=== PATIENT | male | born 1985 | race Caucasian/White ===

== ENCOUNTER 2022-07-12 05:52 | Emergency (ER) | payer BC, SELFPAY ==
[2022-07-12] VITALS (11 sets, daily range): BP systolic 163–194; BP diastolic 86–104; PULSE 76–91; RESP 16–22; TEMP 37.2; O2SAT 94–100
[2022-07-12 07:02] LABS: Alanine Aminotransferase 39 U/L (6-50); Albumin Level 4.1 g/dL (3.5-5.1); Alkaline Phosphatase 53 U/L (38-126); Anion Gap 11 mmol/L (8-16); Aspartate Amino Transferase 31 U/L (17-59); Bilirubin,Total 0.7 mg/dL (0.2-1.3); Blood Urea Nitrogen 15 mg/dL (9-20); Carbon Dioxide 23 mmol/L (22-30); Chloride 103 mmol/L (98-107); Estimated CRCL calculation 194 ml/min; Estimated Glomerular Filt Rate > 60; Glucose 111 mg/dL (65-110); Lipase 39 U/L (23-300); Potassium 3.7 mmol/L (3.4-5.0); Sodium 137 mmol/L (137-145)
--- NOTE | 2022-07-12 07:37 | ED.GENADULT ---
HPI - General Adult General Chief complaint: Nausea/Vomiting/Diarrhea Stated complaint: N/V, abd pain, fever Time Seen by Provider: 07/12/22 07:00 History of Present Illness HPI narrative: 37-year-old male presenting to the emergency department for evaluation of multiple complaints. Patient states over the last few days he has developed full body pain. Patient states he typically has pain in his knees but has also developed pain in his arms and abdomen. Patient states he does have increased fatigue. Patient denies any associated chest pain or shortness of breath with this. Patient states he has had some nausea. Patient reports he has had associated fever. Patient does not test himself for COVID. Patient reports he does have a prior history of GA. Patient states he did have his gallbladder out approximately 10 years ago Related Data Allergies Allergy/AdvReac Type Severity Reaction Status Date / Time No Known Allergies Allergy Verified 07/12/22 06:07 Review of Systems Review of Systems: All systems reviewed & are unremarkable except as noted in HPI and below Exam Narrative: APPEARANCE: Sitting at side of bed alert and appropriate, no distress HEAD: normocephalic, atraumatic. EYES: PERRLA/EOMI, conjunctivae clear. NOSE: Normal no drainage NECK: Supple. No adenopathy, no masses. RESPIRATORY: Airway patent, respirations nonlabored. Clear to auscultation bilaterally, no rales, rhonchi, wheezing. CARDIOVASCULAR: Regular rate and rhythm without murmurs rubs or gallops. ABDOMINAL: Soft, nontender, nondistended, normal bowel sounds MUSCULOSKELETAL: Moves all extremities. Strength/ROM intact, No edema, No calf tenderness. NEURO: Alert. Cranial nerves II through XII intact. Good gait. Good coordination SKIN: Warm, dry. Normal Color PSYCHIATRIC: Normal affect/mood. Course Course Emergency Course: 37-year-old male presented ED for evaluation of fever and generalized weakness and generalized pain. Patient was afebrile in the ED with no leukocytosis. Patient's CMP is within normal limits. No evidence of urinary tract infection. Patient's influenza COVID RSV and strep are negative. Patient does feel improved with rehydration. Patient was encouraged to have close follow-up with his primary care physician and to take Tylenol and ibuprofen for pain control. And for fever control. Suspect a viral etiology for the patient's symptoms. Patient was comfortable with the plan for discharge and close follow-up. Vital Signs Vital signs: Vital Signs Temperature 98.9 F 07/12/22 05:58 Pulse Rate 87 07/12/22 05:58 Respiratory Rate 22 H 07/12/22 05:58 Blood Pressure 164/96 H 07/12/22 05:58 Pulse Oximetry 96 07/12/22 05:58 Oxygen Delivery Room Air 07/12/22 05:58 Temperature 98.9 F 07/12/22 05:58 Pulse Rate 76 07/12/22 11:19 Respiratory Rate 18 07/12/22 11:19 Blood Pressure 188/91 H 07/12/22 11:19 Pulse Oximetry 100 07/12/22 11:19 Oxygen Delivery Room Air 07/12/22 06:00 Medical Decision Making Vital Signs Vital Signs: Vital Signs Temperature 98.9 F 07/12/22 05:58 Pulse Rate 87 07/12/22 05:58 Respiratory Rate 22 H 07/12/22 05:58 Blood Pressure 164/96 H 07/12/22 05:58 Pulse Oximetry 96 07/12/22 05:58 Oxygen Delivery Room Air 07/12/22 05:58 Temperature 98.9 F 07/12/22 05:58 Pulse Rate 76 07/12/22 11:19 Respiratory Rate 18 07/12/22 11:19 Blood Pressure 188/91 H 07/12/22 11:19 Pulse Oximetry 100 07/12/22 11:19 Oxygen Delivery Room Air 07/12/22 06:00 Lab Data Lab results reviewed: Yes I reviewed the patient's lab results. 07/12/22 07:42 07/12/22 06:45 Labs: Lab Results 07/12/22 07/12/22 07/12/22 Range/Units 06:45 07:42 07:43 WBC 6.5 (4.5-10.0) K/mm3 RBC 4.22 L (4.6-6.20) M/mm3 Hgb 11.5 L (14.0-18.0) g/dL Hct 36.3 L (42.0-52.0) % MCV 86.0 (80-100) fl MCH 27.3 (26-34) pg MCHC
[2022-07-12] MEDS: SODIUM CHLORIDE 0.9% IV 1,000 ML 500 ML IV CONT (07:50)
[2022-07-12] MEDS: ONDANSETRON INJ 4 MG/2 ML VIAL IV PUSH (07:50)
[2022-07-12 07:51] LABS: Appearance Urine Clear (Clear); Bilirubin Urine Negative (Negative); Blood Urine Negative (Negative); Color Urine Yellow (Yellow); Glucose Urine UA Negative (Negative); Ketones Urine Negative (Negative); Leukocyte Esterase Ur Negative LEU/UL (Negative); Nitrate Urine Negative (Negative); Protein Urine Negative (Negative); Specific Grav Ur 1.015 (1.001-1.035); Urobilinogen Urine 0.2 mg/dL (<2.0); pH Urine 5.5 (5.0-9.0)
[2022-07-12 07:52] LABS: Add Urine Microscopic? NO
[2022-07-12 08:01] LABS: Basophils Percent Auto 0.3 % (0.2-1.2); Eosinophils Absolute Auto 0.1 K/mm3 (0-0.3); Eosinophils Percent Auto 1.8 % (0-4.4); Hematocrit 36.3 % (42.0-52.0); Hemoglobin 11.5 g/dL (14.0-18.0); Immature Granulocyte Absolute 0.03 K/mm3 (0.00-0.031); Immature Granulocyte Percent A 0.5 % (0-0.5); Lymphocytes Absolute Auto 0.41 K/mm3 (0.9-3.2); Lymphocytes Percent Auto 6.3 % (18.3-44.2); Mean Corpuscular HGB Conc 31.7 g/dl (32-36); Mean Corpuscular Hemoglobin 27.3 pg (26-34); Mean Platelet Volume 10.2 fl (7.4-10.4); Monocytes Absolute Auto 0.4 K/mm3 (0.1-0.6); Monocytes Percent Auto 5.9 % (2.6-8.5); Neutrophils Absolute Auto 5.5 K/mm3 (1.3-6.7); Neutrophils Percent Auto 85.2 % (45.5-73.1); Platelet Count Result 206 k/mm3 (150-375); Red Blood Count 4.22 M/mm3 (4.6-6.20); Red Cell Distribution Width 14.7 % (11.5-14.5); White Blood Count 6.5 K/mm3 (4.5-10.0)
[2022-07-12 08:14] LABS: Strep Group A RT-PCR NOT DETECTED (Negative)
[2022-07-12 08:26] LABS: Influenza A QL RT-PCR Negative (Negative); Influenza B QL RT-PCR Negative (Negative); RSV RNA, RT-PCR Negative (Negative); SARS-CoV-2 RNA PCR Negative (Negative)
== END 2022-07-12 11:21 | disposition home or self-care (01) ==
PROVIDERS: Emergency Medicine; Emergency Provider Emergency Medicine
DX: R50.9 Fever, unspecified (principal); Z20.822 Contact with and (suspected) exposure to COVID-19
CPT/HCPCS: 36415; 80053; 81003; 83690; 85025; 87637; 87651; 96361; 96365; 96375; 99284; J0131; J2405; J7030

== ENCOUNTER 2024-01-28 14:47 | Emergency (ER) | payer BC, SELFPAY ==
--- NOTE | ~2024-01-28 | CT_ITS ---
EXAMINATION: CT abdomen pelvis w con DATE: 01/28/2024 17:09 INDICATION: Abdominal pain TECHNIQUE: Computed tomography (CT) of the abdomen and pelvis was performed with 100 mL Omnipaque-350 intravenous contrast. Automated exposure control and iterative reconstruction technique were employe d. The dose-length product was 1675.08 mGy-cm. COMPARISON: MRCP dated 04/29/1969 FINDINGS: Lung bases are clear. Heart size is normal. Atherosclerotic coronary artery calcification. No pericar dial or pleural effusion. Postoperative change of prior sleeve gastrectomy with suture line along the greater curvature of the stomach. Status post cholecystectomy. Liver, spleen, pancreas, bilateral ad renal glands and left kidney are normal. Right-sided nephrolithiasis with 7 mm stone at a lower pole calyx of the right kidney. There is an obstructing 6 cm stone at the right ureterovesicular junction with additional 5 mm stone 1.5 cm more proximally in the distal right ureter. Mild right hydrouretero nephrosis. Couple diverticula along the descending colon without adjacent comparison to suggest diver ticulitis. Small bowel and appendix are normal. No free intraperitoneal gas or fluid. No pathological ly enlarged abdominal or pelvic lymphadenopathy. Transitional sacralized L5 segment. IMPRESSION: 1. Right-sided nephrolithiasis with obstructing 6 mm right UVJ stone and mild right hydronephrosis. Reviewed, dictated and finalized at location A. [employer] IMPRESSION: 1. Right-sided nephrolithiasis with obstructing 6 mm right UVJ stone and mild r ight hydronephrosis.
[2024-01-28 15:30] VITALS: BP 130/93; PULSE 51; RESP 18; TEMP 36.4; O2SAT 100
[2024-01-28 16:00] LABS: Basophils Percent Auto 0.3 % (0.2-1.2); Eosinophils Absolute Auto 0.1 K/mm3 (0-0.3); Eosinophils Percent Auto 0.8 % (0-4.4); Hematocrit 38.1 % (42.0-52.0); Hemoglobin 12.6 g/dL (14.0-18.0); Immature Granulocyte Absolute 0.02 K/mm3 (0.00-0.031); Immature Granulocyte Percent A 0.2 % (0-0.5); Lymphocytes Absolute Auto 1.32 K/mm3 (0.9-3.2); Lymphocytes Percent Auto 12.3 % (18.3-44.2); Mean Corpuscular HGB Conc 33.1 g/dl (32-36); Mean Corpuscular Hemoglobin 28.6 pg (26-34); Mean Corpuscular Volume 86.4 fl (80-100); Mean Platelet Volume 10.9 fl (7.4-10.4); Monocytes Absolute Auto 0.6 K/mm3 (0.1-0.6); Monocytes Percent Auto 5.1 % (2.6-8.5); Neutrophils Absolute Auto 8.8 K/mm3 (1.3-6.7); Neutrophils Percent Auto 81.3 % (45.5-73.1); Platelet Count Result 233 k/mm3 (150-375); Red Blood Count 4.41 M/mm3 (4.6-6.20); Red Cell Distribution Width 14.7 % (11.5-14.5); White Blood Count 10.8 K/mm3 (4.5-10.0)
[2024-01-28 16:06] LABS: Add Urine Microscopic? YES; Appearance Urine Clear (Clear); Bacteria Urine None Seen /hpf; Bilirubin Urine Negative (Negative); Blood Urine Negative (Negative); Color Urine Yellow (Yellow); Glucose Urine UA Negative (Negative); Ketones Urine Negative (Negative); Leukocyte Esterase Ur Negative LEU/UL (Negative); Nitrate Urine Negative (Negative); Non Pathogenic Casts 0-2; Protein Urine Trace mg/dL (Negative); RBC Urine 0-2 /hpf (0-2); Specific Grav Ur 1.031 (1.001-1.035); Squamous Epithelial Cell Urine None Seen /hpf (Few); WBC Urine 0-5 /hpf (0-3); pH Urine 6.5 (5.0-9.0)
[2024-01-28 16:11] LABS: Alanine Aminotransferase 52 U/L (6-50); Albumin Level 4.4 g/dL (3.5-5.1); Alkaline Phosphatase 85 U/L (38-126); Anion Gap 10 mmol/L (4-12); Aspartate Amino Transferase 33 U/L (17-59); Bilirubin,Total 0.6 mg/dL (0.2-1.3); Blood Urea Nitrogen 21 mg/dL (9-20); Calcium 9.4 mg/dL (8.4-10.2); Carbon Dioxide 24 mmol/L (22-30); Chloride 107 mmol/L (98-107); Estimated CRCL calculation 173 ml/min; Estimated Glomerular Filt Rate > 60; Glucose 126 mg/dL (65-110); Lipase 77 U/L (23-300); Sodium 141 mmol/L (137-145)
[2024-01-28] MEDS: ONDANSETRON INJ 4 MG/2 ML VIAL IV PUSH (16:14)
[2024-01-28] MEDS: MORPHINE SULFATE (*CRX) 4 MG/ML INJ IV PUSH (16:15)
[2024-01-28 16:16] VITALS: BP 138/52; PULSE 46; RESP 18; O2SAT 97
--- NOTE | 2024-01-28 16:19 | ECG_ITS ---
Test Date: 2024-01-28 16:41:16 Measurements Intervals [place] Rate: 51 P: 42 DC: 165 QRS: 47 QRSD: 109 T: 30 QT: 455 QTc: 421 Interpretive Statements SINUS BRADYCARDIA BASELINE ARTIFACT- I, II, AVR BORDERLINE ECG No previous ECG available for comparison Electronically Signed On 01-28-2024 19:23:37 [employer] by Alex Pineda D.O.
--- NOTE | 2024-01-28 16:35 | ED.ABDPAIN ---
HPI - Abdominal Pain General Chief Complaint: Urogenital-Male Stated Complaint: right sided flank pain, Urinary burning Time Seen by Provider: 01/28/24 15:02 Source: patient Mode of arrival: ambulatory Limitations: no limitations History of Present Illness HPI narrative: this is a 38-year-old male that presents to the emergency department for right-sided lower abdominal pain. Reports history of kidney stones in the his pain feels similar. Reports some discomfort with urination. Reports nausea and vomiting. Denies fevers or hematuria. Related Data Allergies Allergy/AdvReac Type Severity Reaction Status Date / Time No Known Allergies Allergy Verified 01/28/24 16:11 Review of Systems Review of Systems: CONSTITUTIONAL: Denies fever GASTROINTESTINAL: Reports abdominal pain, nausea, vomiting GENITOURINARY: Reports dysuria. Denies hematuria. All systems reviewed & are unremarkable except as noted in HPI and below PMFSH Past Medical History Medical History (Updated 01/29/24 @ 00:01 by Jaime Nogueira) History of diabetes mellitus History of hyperlipidemia History of hypertension Social History Social History (Updated 01/28/24 @ 16:38 by Chelita Soto PA-C) Substance use: never Exam Narrative: GENERAL: Well-appearing, well-nourished, and in no acute distress. HEAD: Normocephalic, atraumatic. EYES: EOMI. CHEST: Clear to auscultation. No respiratory distress. No wheezes rales or rhonchi HEART: Regular rate and rhythm. No murmur heard. Normal peripheral pulses. ABDOMEN: Soft, nondistended, normal active bowel sounds. Tender to palpation in the mid/right lower abdomen EXTREMITIES: Normal range of motion. No edema. SKIN: Warm, dry, no rash. NEURO: No focal deficits. Alert and oriented x3. PSYCH: Normal mood and affect Course Course Emergency Course: patient updated on his workup and agrees with plan of care Vital Signs Vital signs: Vital Signs Temperature 97.6 F 01/28/24 15:30 Pulse Rate 51 L 01/28/24 15:30 Respiratory Rate 18 01/28/24 15:30 Blood Pressure 130/93 H 01/28/24 15:30 Pulse Oximetry 100 01/28/24 15:30 Oxygen Delivery Room Air 01/28/24 15:30 Temperature 97.6 F 01/28/24 15:30 Pulse Rate 63 01/28/24 16:46 Respiratory Rate 19 01/28/24 16:46 Blood Pressure 139/69 01/28/24 16:46 Pulse Oximetry 100 01/28/24 16:46 Oxygen Delivery Room Air 01/28/24 15:30 MDM - Abdominal Pain MDM Narrative Medical decision making narrative: Patient presents to the emergency department for right-sided lower abdominal pain. Reports history of kidney stones. He is afebrile and nontoxic appearing. His vitals are stable. CBC with mild leukocytosis to 10.8. Metabolic panel with normal appearing kidney function. Urine without evidence of infection. CT abdomen pelvis shows a 6 mm right UVJ stone. Patient updated on his workup and agrees with plan of care. He is to follow up with urology. He was given warnings to return to the ER Differential Diagnosis Differential diagnosis: Likely acute appendicitis, calculus of kidney, gastroenteritis and small bowel obstruction Lab Data Attestation: I reviewed the patient's lab results. 01/28/24 15:48 01/28/24 15:48 Labs: Lab Results 01/28/24 Range/Units 15:48 WBC 10.8 H (4.5-10.0) K/mm3 RBC 4.41 L (4.6-6.20) M/mm3 Hgb 12.6 L (14.0-18.0) g/dL Hct 38.1 L (42.0-52.0) % MCV 86.4 (80-100) fl MCH 28.6 (26-34) pg MCHC 33.1 (32-36) g/dl RDW 14.7 H (11.5-14.5) % Plt Count 233 (150-375) k/mm3 MPV 10.9 H (7.4-10.4) fl Immature Gran % (Auto) 0.2 (0-0.5) % Neut % (Auto) 81.3 H (45.5-73.1) % Lymph % (Auto) 12.3 L (18.3-44.2) % [place] % (Auto) 5.1 (2.6-8.5) % Eos % (Auto) 0.8 (0-4.4) % Baso % (Auto) 0.3 (0.2-1.2) % Lymph # (Auto) 1.32 (0.9-3.2) K/mm3 [place] # (Auto) 0.6 (0.1-0.6) K/mm3 Eos # (Auto) 0.1 (0-0.3) K/mm3 Baso # (Auto) 0.0 (0.0-0.1) K/mm3 Abs Immat Gran (auto) 0.02 (0.00-0.031) K/mm3 Absolute Neuts (auto) 8.8 H (1.3-6.7) K/mm3 Absolute Nucleated RBC 0.000 (0.0-0.012) K/mm3 Nucleated RBC % 0.0 (0.0-0.2) % Sodium 141 (137-145) mmol/L Potassium 4.0 (3.4-5.0) mmol/L Chloride 107 (98-107) mmol/L Carbon Dioxide 24 (22-30) mmol/L Anion Gap 10 (4-12) mmol/L BUN 21 H (9-20) mg/dL Creatinine 0.80 (0.7-1.3) mg/dL Estim Creat Clear Calc 173 ml/min Estimated GFR > 60 (59 - ) Glucose 126 H (65-110) mg/dL Calcium 9.4 (8.4-10.2) mg/dL Total Bilirubin 0.6 (0.2-1.3) mg/dL AST 33 (17-59) U/L ALT 52 H (6-50) U/L Alkaline Phosphatase 85 (38-126) U/L Total Protein 9.0 H (6.3-8.2) g/dL Albumin 4.4 (3.5-5.1) g/dL Lipase 77 (23-300) U/L Urine Color Yellow (Yellow) Urine Appearance Clear (Clear) Urine pH 6.5 (5.0-9.0) Ur Specific [place] 1.031 (1.001-1.035) Urine Protein Trace (Negative) mg/dL Urine Glucose (UA) Negative (Negative) mg/dL Urine Ketones Negative (Negative) mg/dL Ur Blood (Man) Negative (Negative) Urine Nitrate Negative (Negative) Urine Bilirubin Negative (Negative) Urine Urobilinogen 1.0 (<2.0) mg/dL Leukocyte Esterase Rfl Negative (Negative) NEO/UL Urine RBC 0-2 (0-2) /hpf Urine WBC 0-5 (0-3) /hpf Ur Squamous Epith Cells None seen (Few) /hpf Urine Bacteria None seen /hpf Urine Casts 0-2 Imaging Data Radiologist's impression: ITS Impressions Abdomen/Pelvis CT 01/28/24 17:15 IMPRESSION: 1. Right-sided nephrolithiasis with obstructing 6 mm right UVJ stone and mild right hydronephrosis. ECG Data EKG #1: ECG completion date: 01/28/24 bradycardia, sinus rhythm, no ST changes and normal QT Critical Care Time Critical Care Time Critical Care Time: No Discharge Plan Discharge Clinical Impression: Kidney stone on right side Patient Disposition: Home, Self-Care Condition: Stable Instructions: Kidney Stones (ED), How to Strain Your Urine (ED) Additional Instructions: Return to the ER if you experience fever, abdominal pain with nausea and vomiting, you are unable to keep down liquids or solids, pain or burning with urination, blood in the urine or any other symptoms that are concerning to you Remain well hydrated. take tamsulosin daily. Strain your urine. [id number] pain medication as needed. Prescribed pain medication as needed Follow up with primary care doctor Prescriptions: New tamsulosin 0.4 mg capsule 0.4 mg PO DAILY 7 Days Qty: 7 0RF hydrocodone-acetaminophen 5-325 mg tablet 1 tablet PO Q6H PRN (Reason: pain) Qty: 20 0RF Follow-up/Referrals: Enzo Capellan MD [Physician] - UNKNOWN,DOCTOR [Primary Care Provider] - Time of Disposition: 19:08
[2024-01-28] MEDS: SODIUM CHLORIDE 0.9% IV 1,000 ML 999 ML IV CONT (16:36)
[2024-01-28 16:46] VITALS: BP 139/69; PULSE 63; RESP 19; O2SAT 100
[2024-01-28] MEDS: KETOROLAC 15 MG/ML VIAL (*BKC) IV PUSH (17:44)
== END 2024-01-28 19:26 | disposition home or self-care (01) ==
PROVIDERS: Emergency Provider Physician Assistant
DX: N20.0 Calculus of kidney (principal); E78.5 Hyperlipidemia, unspecified; E11.9 Type 2 diabetes mellitus without complications; I10 Essential (primary) hypertension
CPT/HCPCS: 36415; 74177; 80053; 81001; 83690; 85025; 93005; 96361; 96374; 96375; 99284; J1885; J2270; J2405; J7030; Q9967

== ENCOUNTER 2024-04-29 13:07 | Outpatient (CLI) | payer BC, SELFPAY | END 2024-04-29 13:08 | disposition home or self-care (01) | PROVIDERS: Visit Provider Internal Medicine | DX: N13.2 Hydronephrosis with renal and ureteral calculous obstruction (principal); M25.472 Effusion, left ankle; R53.1 Weakness; M25.50 Pain in unspecified joint; R53.81 Other malaise; M79.10 Myalgia, unspecified site | CPT/HCPCS: 72202; 73100; 73120; 73600; 73620 ==